=== PATIENT | female | born 1970 | race Caucasian/White ===

== ENCOUNTER 2019-02-01 18:28 | Emergency (ER) | payer BC, MEDICAID ==
[~2019-02-01] VITALS: Ht 154.9 cm; Wt 65.3 kg
[~2019-02-01 18:28] MED LIST: MOTRIN
[2019-02-01 18:34] VITALS: BP 152/108
--- NOTE | 2019-02-01 18:35 | NUR ---
PT AMB TO BED 2.
--- NOTE | 2019-02-01 18:38 | NUR ---
48/F BIB SELF C/O L 5TH DIGIT PAIN/SWELLING. 5/10. PT STATES SHE STUBBED HER TOE TODAY ON HER LUGGAGE. PMH- DENIES. PATIENT STATES PAIN OF 5/10 AT THIS TIME; PATIENT POSITIONED FOR COMFORT; HOB ELEVATED; BEDRAILS UP X1; BED DOWN. ER MD MADE AWARE OF PT STATUS.
[2019-02-01] MEDS ORDERED: KETOROLAC 30 MG/ML VIAL IM ONE (19:05)
--- NOTE | 2019-02-01 19:07 | NUR ---
Pt report given to SOPHIA MORRIS . Transfer of care at this time.
--- NOTE | 2019-02-01 19:08 | NUR ---
REPORT RECEIVED FROM ALEXANDRA MILLS. TRANSFER OF CARE AT THIS TIME.
[2019-02-01 19:34] VITALS: BP 148/97
--- NOTE | 2019-02-01 19:34 | NUR ---
Patient discharged with v/s stable. Written and verbal after care instructions given and explained. Patient alert, oriented and verbalized understanding of instructions. Ambulatory with steady gait. All questions addressed prior to discharge. ID band removed. Patient advised to follow up with PMD. Rx of ACETAMINOPHEN given. Patient educated on indication of medication including possible reaction and side effects. Opportunity to ask questions provided and answered. PT GIVEN EXCUSE FOR WORK
== END 2019-02-01 19:34 | disposition home or self-care (01) ==
LOC: MED 18:28
DX: S90.122A Contusion of left lesser toe(s) without damage to nail, initial encounter (principal); Z98.890 Other specified postprocedural states; Z79.899 Other long term (current) drug therapy; W22.8XXA Striking against or struck by other objects, initial encounter; Y92.89 Other specified places as the place of occurrence of the external cause; Y93.89 Activity, other specified; Y99.8 Other external cause status
CPT/HCPCS: 73660; 96372; 99283; J1885